=== PATIENT | female | born 1955 | race Caucasian/White ===

== ENCOUNTER 2021-01-29 13:47 | Outpatient (CLI) | payer BC, SELFPAY ==
--- NOTE | ~2021-01-29 | DEXA_ITS ---
Bone Density Report Name: Cesilia Hayes Age: 65 Sex: Female Ethnicity: White Date of : 1955 Indication: postmenopausal; parental hip fracture; height loss; Referring Provider: Maribell Miller Study: Bone densitometry was performed. Exam Date: January 29, 2021 Accession number: [id number] Bone Density: Region BMD T-score Z-score Classification AP Spine (L1-L4) 0.806 -2.2 -0.6 Osteopenia Femoral Neck (Left) 0.732 -1.1 0.4 Osteopenia Total Hip (Left) 0.857 -0.7 0.4 Normal Total Hip Bilateral Avg 0.868 -0.6 0.5 Normal Femoral Neck (Right) 0.737 -1.0 0.4 Normal Total Hip (Right) 0.878 -0.5 0.6 Normal World Health Organization criteria for BMD impression classify patients as: Normal (T-score at or above -1.0), Osteopenia (T-score between -1.0 and -2.5), or Osteoporosis (T-score at or below -2.5). 10-year Fracture Risk(1): Major Osteoporotic Fracture 15% Hip Fracture 1.0% Reported Risk Factors: [place] (), Neck BMD=0.732, BMI=24.0, parental fracture, smoking (1) FRAX(R) Version 3.08. Fracture probability calculated for an untreated patient. Fracture probability may be lower if the patient has received treatment. Previous Exams: Region Exam Age BMD T-score BMD Change BMD Change Date g/cm2 vs Baseline vs Previous AP Spine(L1-L4) 01/29/2021 65 0.806 -2.2 -0.140(-14.8%) -0.140(-14.8%) 11/14/2008 52 0.946 -0.9 Total Hip(Left) 01/29/2021 65 0.857 -0.7 0.003(0.3%)# 0.003(0.3%)# 11/14/2008 52 0.854 -0.7 Total Hip(Right) 01/29/2021 65 0.878 -0.5 -0.007(-0.8%)# -0.007(-0.8%)# 11/14/2008 52 0.885 -0.5 *Denotes significance at 95% confidence level, LSC for AP Spine = 0.022 g/cm2, LSC for Total Hip = 0.027 g/cm2 Clinical Information Provided by Patient: Parent has had a hip fracture Smokes Has used the following medications: Vitamin D, Calcium Patient maximum height was 68 Drinks caffeinated beverages Onset of menses at age 16 Number of children 2 Impression: The patient has low bone mass, based on the Total Spine T-score. The patient has an estimated ten-year risk of hip fracture of 1% and an estimated ten-year risk of major fracture of 15%, based on the WHO FRAX algorithm. The patient has risk factors, including: parental hip fracture, smoking. No significant bone loss was observed. Discussion: BONE DENSITY IS LOW AT ONE OR MORE SKELETAL SITES. This patient's lowest T-score is low at one or more skeletal
--- NOTE | ~2021-01-29 | MM_ITS ---
EXAMINATION: MM screening [facility] BI w mckayla HISTORY: Screening mammogram TECHNIQUE: Craniocaudal and mediolateral oblique 3-D tomosynthesis images were obtained and synthetic 2-D images were generated. CAD analysis was submitted and interpreted. COMPARISON: 12/11/2018, 04/24/2017, 06/03/2015 BREAST PARENCHYMAL COMPOSITION: There are scattered areas of fibroglandular density. FINDINGS: There is no evidence of suspicious mass, calcification, or architectural distortion to sugg est malignancy in either breast. There has been no suspicious interval change. IMPRESSION: 1. No mammographic evidence of malignancy. 2. Recommend routine screening mammography in one year. BI-RADS Category 1: Negative Reviewed, dictated and finalized at location A.
== END 2021-01-29 13:48 | disposition home or self-care (01) ==
LOC: ANHIMG 13:50
PROVIDERS: PCP Internal Medicine; Visit Provider Nurse Practitioner
DX: Z12.31 Encounter for screening mammogram for malignant neoplasm of breast (principal); Z13.820 Encounter for screening for osteoporosis; Z78.0 Asymptomatic menopausal state; M85.88 Other specified disorders of bone density and structure, other site; M85.852 Other specified disorders of bone density and structure, left thigh
CPT/HCPCS: 77063; 77067; 77080

== ENCOUNTER 2022-02-24 15:39 | Outpatient (CLI) | payer BC, SELFPAY ==
--- NOTE | ~2022-02-24 | MM_ITS ---
EXAMINATION: MM screening [facility] BI w mckayla HISTORY: Screening mammogram TECHNIQUE: Craniocaudal and mediolateral oblique 3-D tomosynthesis images were obtained and synthetic 2-D images were generated. CAD analysis was submitted and interpreted. COMPARISON: 01/29/2021, 12/11/2018, 04/24/2017 BREAST PARENCHYMAL COMPOSITION: There are scattered areas of fibroglandular density. FINDINGS: There is no suspicious mass, calcification, or architectural distortion to suggest malignan cy in either breast. There has been no suspicious interval change. IMPRESSION: 1. No mammographic evidence of malignancy. 2. Recommend routine screening mammography in one year. BI-RADS Category 1: Negative Reviewed, dictated and finalized at location A.
== END 2022-02-24 15:40 | disposition home or self-care (01) ==
PROVIDERS: PCP Internal Medicine; Visit Provider Nurse Practitioner
DX: Z12.31 Encounter for screening mammogram for malignant neoplasm of breast (principal)
CPT/HCPCS: 77063; 77067

== ENCOUNTER 2022-08-02 15:35 | Outpatient (CLI) | payer BC, SELFPAY ==
--- NOTE | ~2022-08-02 | CT_ITS ---
EXAMINATION: CT lung screening DATE: 08/02/2022 15:51 INDICATION: Tobacco use. Lung cancer screening TECHNIQUE: Computed tomography (CT) of the chest was performed without intravenous contrast. Addition al 3D reconstructions utilizing coronal maximum intensity projection (MIP) were performed. Automated exposure control and iterative reconstruction technique were employed. The dose-length product was 68 .09 mGy-cm. COMPARISON: None FINDINGS: Mild right apical pleural-parenchymal scarring. Atelectasis in the right middle lobe. There are coupl e flat lenticular intrafissural lymph nodes along the right minor fissure, each measuring 7 x 2 mm on sagittal imaging. There are a few scattered <4 mm nodules in both lungs, at least a few of which flaquito ear to represent tiny mucous plugs and some peripheral bronchi. No pneumonia, pulmonary edema or pleu ral effusion. Heart size is normal. Atherosclerotic coronary artery calcific location. No pericardial effusion. Thoracic aorta is normal in caliber. No pathologically enlarged thoracic lymphadenopathy. Visualized upper abdomen is unremarkable. Moderate to severe thoracic spondylosis with chronic appear ing mild anterior wedging at T11 and T12. IMPRESSION: 1. Lung-RADS category 2: Benign appearance or behavior. Continue annual screening with noncontrast lo w-dose chest CT in 12 months. Reviewed, dictated and finalized at location A. S REPRESENTATIVE UNIFORMS IMPRESSION: 1. Lung-RADS category 2: Benign appearance or behavior. Continue annual screeni ng with noncontrast low-dose chest CT in 12 months.
== END 2022-08-02 15:36 | disposition home or self-care (01) ==
PROVIDERS: PCP Internal Medicine; Visit Provider Nurse Practitioner
DX: Z12.2 Encounter for screening for malignant neoplasm of respiratory organs (principal); F17.210 Nicotine dependence, cigarettes, uncomplicated
CPT/HCPCS: 71271

== ENCOUNTER 2023-03-04 10:18 | Outpatient (CLI) | payer MEDICARE, OTHER, SELFPAY ==
--- NOTE | ~2023-03-04 | MM_ITS ---
EXAMINATION: MM screening [facility] w mckayla HISTORY: Screening mammogram TECHNIQUE: Craniocaudal and mediolateral oblique 3-D tomosynthesis images were obtained and synthetic 2-D images were generated. CAD analysis was submitted and interpreted. COMPARISON: 02/24/2022, 01/29/2021, 12/11/2018 bilateral screening mammogram examinations BREAST PARENCHYMAL COMPOSITION: There are scattered areas of fibroglandular density. FINDINGS: There is no evidence of suspicious mass, calcification, or architectural distortion to sugg est malignancy in either breast. There has been no suspicious interval change. IMPRESSION: 1. No mammographic evidence of malignancy. 2. Recommend routine screening mammography in one year. BI-RADS Category 1: Negative Reviewed, dictated and finalized at location A.
== END 2023-03-04 10:19 | disposition home or self-care (01) ==
PROVIDERS: PCP Internal Medicine; Visit Provider Nurse Practitioner
DX: Z12.31 Encounter for screening mammogram for malignant neoplasm of breast (principal)
CPT/HCPCS: 77063; 77067

== ENCOUNTER 2023-08-31 13:01 | Outpatient (CLI) | payer MEDICARE, OTHER, SELFPAY ==
--- NOTE | ~2023-08-31 | CT_ITS ---
EXAMINATION: CT lung screening DATE: 08/31/2023 14:08 INDICATION: Personal history of nicotine dependence, current smoker with 40 pack year history TECHNIQUE: Computed tomography (CT) of the chest was performed without intravenous contrast. The dose -length product (DLP) was 81.81 mGy-cm. Automated exposure control and iterative reconstruction techn [email or web address] were employed. COMPARISON: 08/02/2022 FINDINGS: There is mild emphysema. There is a 2 mm nodule in the right upper lobe. The lungs are free of acute airspace opacities. There is atelectasis versus scarring in the right middle lobe. No pleur al effusion or pneumothorax. No pathologically enlarged thoracic lymph nodes are identified. The hear t size is normal. Calcified coronary artery atherosclerosis is noted. There is mild thoracic spondylo sis. IMPRESSION: 1. Lung-RADS category 2: Benign appearance or behavior. Continue annual screening with noncontrast lo w-dose chest CT in 12 months. Reviewed, dictated and finalized at location F. LE BACKER IMPRESSION: 1. Lung-RADS category 2: Benign appearance or behavior. Continue annual screeni ng with noncontrast low-dose chest CT in 12 months.
--- NOTE | ~2023-08-31 | DEXA_ITS ---
Bone Density Report Name: BREANNA HUERTAS Age: 67 Sex: Female Ethnicity: White Date of : 1955 Indication: osteopenia; height loss; Referring Provider: MARY CARMEN SANTOS Study: Bone densitometry was performed. Exam Date: August 31, 2023 Accession number: [id number] Bone Density: Region BMD T-score Z-score Classification AP Spine(L1-L4) 0.789 -2.3 -0.5 Osteopenia Femoral Neck (Left) 0.684 -1.5 0.1 Osteopenia Total Hip (Left) 0.814 -1.0 0.2 Normal Femoral Neck (Right) 0.673 -1.6 0.0 Osteopenia Total Hip (Right) 0.896 -0.4 0.9 Normal Total Hip Mean 0.855 -0.7 0.6 Normal World Health Organization criteria for BMD impression classify patients as: Normal (T-score at or above -1.0), Osteopenia (T-score between -1.0 and -2.5), or Osteoporosis (T-score at or below -2.5). 10-year Fracture Risk(1): Major Osteoporotic Fracture 9.3% Hip Fracture 1.7% Reported Risk Factors: [place] (), Neck BMD=0.673, BMI=25.8, smoking (1) FRAX(R) Version 3.08. Fracture probability calculated for an untreated patient. Fracture probability may be lower if the patient has received treatment. Previous Exams: Region Exam Age BMD T-score BMD Change BMD Change Date g/cm2 vs Baseline vs Previous AP Spine (L1-L4) 08/31/2023 67 0.789 -2.3 -0.017 (-2.1%) -0.017 (-2.1%) 01/29/2021 65 0.806 -2.2 Total Hip(Left) 08/31/2023 67 0.814 -1.0 -0.043 (-5.0%) -0.043 (-5.0%) 01/29/2021 65 0.857 -0.7 Total Hip(Right) 08/31/2023 67 0.896 -0.4 0.018 (2.1%)# 0.018 (2.1%)# 01/29/2021 65 0.878 -0.5 *Denotes significance at 95% confidence level, LSC for AP Spine = 0.022 g/cm2, LSC for Total Hip = 0.027 g/cm2 # Denotes dissimilar scan types or analysis methods Clinical Information Provided by Patient: Smokes Has used the following medications: Vitamin D, Calcium Patient maximum height was 66.0 No regular weight bearing exercise Drinks caffeinated beverages Onset of menses at age 16 Number of children 2 Impression: The patient has low bone mass, based on the Total Spine T-score. The patient has an estimated ten-year risk of hip fracture of 1.7% and an estimated ten-year risk of major fracture of 9.3%, based on the WHO FRAX algorithm. The patient has risk factors, including: smoking. No significant bone loss was observed. Discussion: BONE DENSITY IS LOW AT ONE OR MORE SKELETAL SITES. This patient's lowest T-score is low at one or more skeletal sites. It meets the World Health Organization's (WHO) criteria for ?low calvin
== END 2023-08-31 13:02 | disposition home or self-care (01) ==
PROVIDERS: PCP Nurse Practitioner; Visit Provider Nurse Practitioner
DX: Z12.2 Encounter for screening for malignant neoplasm of respiratory organs (principal); Z78.0 Asymptomatic menopausal state; Z87.891 Personal history of nicotine dependence; M85.88 Other specified disorders of bone density and structure, other site; M85.852 Other specified disorders of bone density and structure, left thigh; M85.851 Other specified disorders of bone density and structure, right thigh
CPT/HCPCS: 71271; 77080

== ENCOUNTER 2024-06-30 08:34 | Emergency (ER) | payer MEDICARE, OTHER, SELFPAY ==
--- NOTE | ~2024-06-30 | XR_ITS ---
Clinical Indication: Cough PA and lateral views of the chest: Comparison: None Findings: There is probable linear scarring or atelectasis the right lung base. The lungs are otherwi se clear, without evidence of focal consolidation or pleural effusion. Cardiomediastinal silhouette is within normal limits. Bones and soft tissues are unremarkable. Impression: Linear scarring or atelectasis right lung base, otherwise clear lungs. Reviewed, dictated and finalized at location M. ATIONS REPRESENTATIVE Impression: Linear scarring or atelectasis right lung base, otherwise clear lungs.
--- NOTE | 2024-06-30 08:44 | ED_ITS ---
HPI - URI/Sore Throat General Chief Complaint: Upper Respiratory Infection Stated Complaint: cough Time Seen by Provider: 06/30/24 08:45 Source: patient, RN notes reviewed and old records reviewed Mode of arrival: ambulatory Limitations: no limitations History of Present Illness HPI Narrative: Patient presents with complaints of productive cough. She reports symptoms began late last week, states that she has some postnasal drainage. On , she noted a feeling of ?phlegm in my throat?. Reports that she coughed and expectorated some bloody sputum. She does report pain with cough, wheezing. Patient reports she smokes pack a day for 40 years. States that she has not had any blood in her sputum since. Denies any history of asthma or COPD. She denies any shortness of breath. She is in no distress at this time, including respiratory distress. She has not been taking any medications for her symptoms Related Data Home Medications Medication Instructions Recorded Confirmed ascorbic acid (vitamin C) 1,000 mg 1 g PO DAILY 12/24/20 02/29/24 tablet multivitamin 1 tablet PO DAILY 12/24/20 02/29/24 omega-3 fatty acids 1,000 mg 1,000 mg PO DAILY 01/07/21 02/29/24 capsule (Fish Oil Concentrate) calcium carbonate (Calcium 600) 600 mg PO DAILY 02/02/21 02/29/24 risankizumab-rzaa 150 mg/mL 150 mg subcut ONCE 08/16/23 02/29/24 subcutaneous pen injector (Skyrizi) Allergies Allergy/AdvReac Type Severity Reaction Status Date / Time No Known Allergies Allergy Verified 06/30/24 08:56 Review of Systems Review of Systems: All systems reviewed & are unremarkable except as noted in HPI and below Constitutional: Constitutional: Reports no additional constitutional complaints ENT: Reports system reviewed and no additional complaints, except as documented, Reports nasal discharge and Reports post nasal drip Cardiovascular: Cardiovascular: Reports as per HPI and Reports no additional cardiovascular complaints Respiratory: Respiratory: Reports as per HPI, Reports no additional respiratory complaints, Reports chest congestion, Reports cough, Reports hemoptysis, Reports excessive phlegm production, Reports pain with cough, Denies stridor and Reports wheezing Gastrointestinal: Gastrointestinal: Reports no additional gastrointestinal complaints PMFSH Past Medical History Medical History Crohn's disease, unspecified, without complications Dermatitis, unspecified Dermoid cyst Encounter for screening colonoscopy Major depressive disorder, single episode, unspecified Postmenopausal Prediabetes Screening for osteoporosis Screening mammogram, encounter for Vitamin D deficiency, unspecified Surgical History Surgical History H/O colonoscopy History of salpingo-oophorectomy Family History Family History Sibling Family history of gastrointestinal disorder Family history of diabetes mellitus in first degree relative Diabetes mellitus Mother Cerebrovascular accident Patient's mother is , Onset Age: 55 Social History Social History Smoking packs per day: 1 Smoking cigarettes per day: 20.0 Smoking status: Current every day smoker Tobacco type: cigarettes Second hand tobacco smoke exposure: No Alcohol intake: never Substance use: never Substance use type: does not use Lack of Transportation: No Lack of Food: Never True Current Housing: I Have Housing Concerned About Future Housing: No Difficulty Paying Gas/Electric Bills: No Difficulty Paying for Meds: No Currently Unemployed: No Difficulty w/ Childcare or Family Care: Decline to Answer Comments At the time of my signature, I reviewed and agree with the nursing past medical, surgical, social, and family history. There is no relevant family history pertinent to the patient complaint. Exam Const: General: cooperative, no acute distress, alert and awake Orientation/consciousness: oriented to person, oriented to place and oriented to time HENMT: Head: normal to inspection Ears: TM's normal bilaterally Mouth: Yes moist mucous membranes Throat: posterior oropharynx normal Resp: Effort & Inspection: normal respiratory effort and able to speak in complete sentences Auscultation: clear to auscultation bilaterally, no crackles, no rales, rhonchi throughout and wheezes throughout Cardio: Palpation: normal PMI Rate: regular rate Rhythm: regular rhythm Heart sounds: S1 normal heart sound present and S2 normal heart sound present Neuro: General: oriented to person, oriented to place and oriented to time Cranial nerves: Yes CN's II-XII intact bilaterally Psych: Appearance: grossly normal Thought process: Normal thought process present Insight: Good insight present (Psych) Judgement: Good judgement present (Psych) Course Course Level of Care: Express Care Visit Reevaluation(s) Reevaluation #1: Lung sound much cleaer, , moving air much better after 1st dose of steroids and neb treatment. Pulse oximetry 94, 86 heart rate Date: 06/30/24 Time: 09:34 Vital Signs Vital signs: Reviewed MDM - URI/Sore Throat MDM Narrative Medical decision making narrative: Patient reports 1 incident of bloody sputum, unsure if this was actually sputum or postnasal drainage. Has not had any further evidence bloody sputum since . Chest x-ray with no focal pneumonia is identified. Patient improved after prednisone and neb treatment. Treat with steroids, albuterol, Z-Narendra for added anti inflammatory properties. Follow up without fail Discharge instructions reviewed with patient, as well as provided in writing per nursing staff. The instructions also include specific and strict return/GO TO THE ER as well as f/u information. All questions have been answered, and the patient deny any further questions with discharge and discharge plan. Some parts of this dictation were generated by voice recognition software and may contain typographical and/or grammatical inaccuracies. Differential Diagnosis Differential diagnosis: Likely bronchitis Medical Records Attestation: I reviewed the patient's medical records. Imaging Data Attestation: I personally reviewed and interpreted this imaging study as follows: My impression: No focal consolidations noted Radiologist's impression: [facility] [address] [place] [address] XRay Report Signed Patient: Cesilia Hayes : 1955 MR#: [id number] Age: 68 Acct:[id number] Loc: [facility] ADM Date: 06/30/24Attending Dr: Ordering Physician: Heather Dewey FNP Date of Service: 06/30/24 Procedure(s): XR chest 2V Accession Number(s): [id number] cc: Heather Dewey FNP; Natalie No APRN~ Clinical Indication: Cough PA and lateral views of the chest: Comparison: None Findings: There is probable linear scarring or atelectasis the right lung base. The lungs are otherwise clear, without evidence of focal consolidation or pleural effusion. Cardiomediastinal silhouette is within normal limits. Bones and soft tissues are unremarkable. Impression: Linear scarring or atelectasis right lung base, otherwise clear lungs. Reviewed, dictated and finalized at location M. [employer]ICAL PRODUCTS ENGINEER Dictated By: Ab Schneider MD 06/30/24908 Signed By: <Electronically signed by Ab Schneider MD in OV> 06/30/24909 Discharge Plan Discharge Clinical Impression: Bronchitis, Elevated blood pressure reading Patient Disposition: Home, Self-Care Condition: Stable Instructions: Antibiotic Form, Acute Bronchitis (ED) Additional Instructions: Take medications as prescribed. Follow-up with primary care provider without fail. Go to the emergency department with any new or worsening symptoms, or if current symptoms do not improve. Blood pressure elevated today Prescriptions: New azithromycin 250 mg tablet See Rx Instructions .ROUTE .COMPLEX Qty: 6 0RF Rx Instructions: For 250 mg dose pack: take 500 mg today (day 1), then 250 mg for 4 days (days 2-5) prednisone 50 mg tablet 50 mg PO DAILY Qty: 5 0RF albuterol sulfate [Ventolin HFA] 90 mcg/actuation HFA aerosol inhaler 2 puff inhalation QID PRN (Reason: shortness of breath or wheezing) Qty: 8.5 0RF No Action Skyrizi 150 mg/mL pen injector 150 mg subcut ONCE multivitamin Tablet 1 tablet PO DAILY ascorbic acid (vitamin C) 1,000 mg tablet 1 g PO DAILY cholecalciferol (vitamin D3) 25 mcg (1,000 unit) capsule 50 mcg PO DAILY Qty: 30 0RF omega-3 fatty acids [Fish Oil Concentrate] 1,000 mg capsule 1,000 mg PO DAILY calcium carbonate [Calcium 600] 600 mg calcium (1,500 mg) tablet 600 mg PO DAILY Patient Comments: Patient reports taking 1800mg daily paroxetine HCl 20 mg tablet See Rx Instructions .ROUTE .COMPLEX Qty: 90 1RF Dose Instruction: TAKE 1 TABLET BY MOUTH DAILY Rx Instructions: TAKE 1 TABLET BY MOUTH DAILY rosuvastatin 40 mg tablet 40 mg PO DAILY Qty: 90 1RF Follow-up/Referrals: Natalie No APRN [Primary Care Provider] - Time of Disposition: 09:35
[2024-06-30 08:48] VITALS: BP 157/82; PULSE 86; RESP 18; TEMP 36.1; O2SAT 91
[2024-06-30] MEDS: predniSONE 20 MG TABLET 60 MG PO (09:07)
[2024-06-30] MEDS: IPRATROPIUM 0.5 MG/ALBUTEROL SULFATE 2.5 MG AMPUL.NEB 3 ML INHALATION (09:08)
[2024-06-30 09:31] VITALS: PULSE 86; RESP 18; O2SAT 94
== END 2024-06-30 09:40 | disposition home or self-care (01) ==
PROVIDERS: Emergency Provider Nurse Practitioner Family; PCP Nurse Practitioner Family
DX: J40 Bronchitis, not specified as acute or chronic (principal); R03.0 Elevated blood-pressure reading, without diagnosis of hypertension; K50.90 Crohn's disease, unspecified, without complications; R73.03 Prediabetes; F17.210 Nicotine dependence, cigarettes, uncomplicated
CPT/HCPCS: 71046; 99213; G0463; J7512

== ENCOUNTER 2024-07-09 08:27 | Outpatient (CLI) | payer MEDICARE, OTHER, SELFPAY ==
--- NOTE | ~2024-07-09 | MM_ITS ---
EXAMINATION: MM screening [facility] w mckayla HISTORY: Screening TECHNIQUE: Craniocaudal and mediolateral oblique 3-D tomosynthesis images were obtained and synthetic 2-D images were generated. CAD analysis was submitted and interpreted. COMPARISON: Comparison to multiple prior studies sequentially, with oldest reviewed study dated 05/15. BREAST PARENCHYMAL COMPOSITION: Not dense: There are scattered areas of fibroglandular density. FINDINGS: There is no evidence of suspicious mass, calcification, or architectural distortion to sugg est malignancy in either breast. There has been no suspicious interval change. IMPRESSION: 1. No mammographic evidence of malignancy. 2. Recommend routine screening mammography in one year. BI-RADS Category 1: Negative Reviewed, dictated and finalized at location B. [employer]ETING [employer]ELOPMENT
== END 2024-07-09 08:28 | disposition home or self-care (01) ==
PROVIDERS: PCP Nurse Practitioner Family; Visit Provider Nurse Practitioner Family
DX: Z12.31 Encounter for screening mammogram for malignant neoplasm of breast (principal)
CPT/HCPCS: 77063; 77067

== ENCOUNTER 2024-10-15 06:58 | Outpatient (CLI) | payer MEDICARE, OTHER, SELFPAY | END 2024-10-15 06:59 | disposition home or self-care (01) | LOC: ANHIMG 06:58 | PROVIDERS: PCP Nurse Practitioner Family; Visit Provider Nurse Practitioner Family | DX: Z12.2 Encounter for screening for malignant neoplasm of respiratory organs (principal); F17.210 Nicotine dependence, cigarettes, uncomplicated | CPT/HCPCS: 71271 ==

== ENCOUNTER 2025-06-13 20:13 | Emergency (ER) | payer MEDICARE, OTHER, SELFPAY ==
--- NOTE | ~2025-06-13 | CT_ITS ---
CT CHEST WITH CONTRAST CLINICAL HISTORY: lung nodule, chest pain . COMPARISON: Chest x-ray today CT chest 10/15/2024 TECHNIQUE: Helical CT performed from thoracic inlet to upper abdomen Coronal, sagittal reformats [address] images acquired with automatic exposure control for dose reduction DLP: 128 mGy-cm FINDINGS: Lungs/Pleura: 2 mm nodule right upper lobe, best seen sagittal image 39 anteriorly. Hyperinflation. Thoracic Aorta: No dissection. No aneurysm. Mild atherosclerotic disease Pulmonary arteries: Normal caliber. Heart: Coronary artery calcification. Tracheobronchial tree: Patent. Nodes: No enlarged nodes. Bones: No acute bony abnormality. Soft tissues: Unremarkable. Visualized upper abdomen: Hepatomegaly, with steatosis. Small hiatal hernia. IMPRESSION: 1. No acute cardiopulmonary findings. 2. Unchanged 2 mm nodule right upper lobe. Reviewed, dictated and finalized at location R.
--- NOTE | ~2025-06-13 | XR_ITS ---
XR chest 1V portable INDICATION:chest pain . REFERENCE: None FINDINGS: A single AP of the chest demonstrates normal heart size. The lungs are clear. There is no evidence of pneumothorax or pleural effusion. IMPRESSION: No acute pulmonary findings. Reviewed, dictated and finalized at location S.
[2025-06-13 20:15] VITALS: BP 170/74; PULSE 94; RESP 17; TEMP 36.4; O2SAT 97
--- OUTSIDE RECORDS SUMMARY | 2025-06-13 20:15 | XMS_ITS | Data Portability ---
Author Organization [facility] Address [address] [place] [address] Care Team Providers Care Administrative Director Name Role Phone SERA WICK Primary Care Provider Assessment Encounter Date Assessment Date Assessment LastModified by Organization Details LastModified Time 08/16/2022 08/16/2022 Annual gynecological exam performed. Patient will come back in a year unless there are new symptoms. Not available 08/16/2022 16:37:38 Plan of Treatment Reminders Order Date Submit Date Provider Last Modified By Organization Details Last Modified Time Details Appointments None record ed. Lab None record ed. Referral None record ed. Procedures None record ed. Surgeries None record ed. Imaging None record ed. Medication Orders None record ed. Patient TargetsNo targets recorded. Patient InstructionsNo instructions recorded. Reason for Referral None Reported. Results Created Date Observation Date Name Description Value Unit Range Abnormal Flag Note LastModifiedBy Organization Detail LastModifiedTime 08/16/19 23 08/16/2022 IMAGE GUIDE D PAP AND HPV REGAR DLESS image guided Pap, HPV regardless of Pap result SEE RESULT S BELOW CASE REPOR T: Cytol ogy Gynec ologi sue Repor t Case: [id number] Autho rey g Provi donavon: Gee Kemp Colle cted: 08/16 1748 QUALITY IMPROVEMENT ENGINEER Order ing Locat ion: [place] [facility] Recei brionna: 08/17 0415 First Scree n: Camilla Boles h, CT Rescr een: Strut z, Willi am, CT Speci men: Scree liborio Pap - Image d, Cervi x STATE MENT OF ADEQU ACY: Satis facto ry for evalu ation Trans forma tion zone compo nent prese nt FINAL DIAGN OSIS: Negat andrew for Intra epith elial Lesio n or Cecilia yuan (NIL) . Elect susie batres malathi d by Saúl Lorenzana am, CT on 023 at 6:08 AM ----- ----- ----- ----- ----- ----- ----- ----- ----- ----- ----- ----- ----- ----- ----- ----- ----- ---- HPV RESUL TS: HPV mRNA E6/E7 : No HPV mRNA Detec netta NOTE: This high risk HPV mRNA assay detec ts fourt een high- risk HPV types (16, 18, 31, 33, 35, 39, 45, 51, 52, 56, 58, 59, 66, 68) witho ut diffe renti ation . COMME NT: Note: This speci men was revie wed by a Cytot echno logis t and/o r Patho logis t (as indic ated in this repor t) after evalu ation using the Thinp rep Imagi ng Syste m. CLINI SUE INFOR MATIO N: Menst rual Statu s: LMP (if appli cable ): Clini sue Histo ry/Pr eviou s Pap: Type of Neopl ferny (if appli cable ): Signi fican t Clini sue Findi ngs: Other Histo ry: Hormo abilio (if appli cable ): PAP EDUCA PIERRE L NOTE: The Pap Test is a scree liborio test with an inher ent false negat andrew rate. Liqui d-bas ed sampl ing may decre ase, but will not elimi yeni, false negat andrew resul ts. A negat andrew resul t does not precl ude the prese nce and/o r devel opmen t of disea se, since the prese nce of abnor mal cells in the sampl e depen ds on the locat ion of the lesio n and sampl ing techn ique. Claudette nued regul ar scree liborio is the best metho d of cance r preve ntion . If repor netta cytol ogic findi ng do not corre late with physi sue and/o r histo rical findi ngs, furth er inves tigat ion is recom sanjeev d, as clini austen garcia nted. Not Available [facility] (Lab) [address], [place], [address], 08/18/2022 07:12:18 Result Notes None recorded. Problems Name Problem SNOMED Code Status Onset Date Resolution Date Notes Provider Name and Address Organization Details Recorded Time Screening for malignant neoplasm of colon Active 2010 Special screening for malignant neoplasms , colon;Pra ctice ID: [id number] Not Available [facility] 0 22:01:10 Specializ ed medical examinati on Active 2012 Gynecolog ical Examinati on;Record ed Elsewhere : No Locati on: [facility] So urce: EHR Chron ic: N Practic e ID: 0001 Bill able Time: 08:30:00 AM Not Available [facility] 0 22:01:09 Screening for malignant neoplasm of cervix Active 2012 Screening for malignant neoplasms of the cervix;Re corded Elsewhere : No Locati on: [facility] So urce: EHR Chron ic: Y Practic e ID: 0001 Bill able Time: 08:30:00 AM Not Available [facility] 0 22:01:10 Microscop ic hematuria 165223121 Active 2012 MICROSCOP IC HEMATURIA ;Recorded Elsewhere : No Locati on: [facility] So urce: EHR Chron ic: N Practic e ID: 0001 Bill able Time: 08:30:00 AM Not Available [facility] 0 22:01:10 Screening for malignant neoplasm of rectum Active 2014 Screening for malignant neoplasms of the rectum;Re corded Elsewhere : No Locati on: [facility] So urce: EHR Chron ic: N Practic e ID: 0001 Bill able Time: 08:30:00 AM Not Available [facility] 0 22:01:09 Blood in urine 25732955 Active 2014 HEMATURIA NOS;Recor ded Elsewhere : No Locati on: [facility] So urce: EHR Chron ic: N Practic e ID: 0001 Bill able Time: 08:30:00 AM Not Available [facility] 0 22:01:09 Adult health examinati on Active 2014 ROUTINE MEDICAL EXAM;Renato rded Elsewhere : No Locati on: [facility] So urce: EHR Chron ic: N Practic e ID: 0001 Bill able Time: 08:30:00 AM Not Available [facility] 0 22:01:09 Leukocyto sis 306661606 Active 2014 LEUKOCYTO SIS NOS;Recor ded Elsewhere : No Locati on: [facility] So urce: EHR Chron ic: N Practic e ID: 0001 Bill able Time: 08:30:00 AM Not Available [facility] 0 22:01:10 Overweigh t 247812728 Active 2014 Overweigh t;Recorde d Elsewhere : No Locati on: [facility] So urce: EHR Chron ic: N Practic e ID: 0001 Bill able Time: 08:30:00 AM Not Available [facility] 0 22:01:[address] Concept Active 2016 Encntr for general adult medical exam w/o abnormal findings; Recorded Elsewhere : No Locati on: [facility] So urce: EHR Chron ic: N Practic e ID: 0001 Bill able Time: 11:30:00 AM Not Available [facility] 0 22:01:09 Evaluatio n finding Active 2016 Hematuria , unspecifi ed;Record ed Elsewhere : No Locati on: [facility] So urce: EHR Chron ic: N Practic e ID: 0001 Bill able Time: 11:30:00 AM Not Available [facility] 0 22:01:09 Body mass index 25-29 - overweigh t [id number] Active 2016 Body mass index (BMI) 25.0-25.9 , adult;Rec orded Elsewhere : No Locati on: [facility] So urce: EHR Chron ic: N Practic e ID: 0001 Bill able Time: 11:30:00 AM Not Available [facility] 0 22:01:[address] Concept Active 2016 Encounter for general adult medical exam w abnormal findings; Practice ID: 0001 Not Available [facility] 0 22:01:[address] Concept Active 2018 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 Procedures Surgical History Date Name Laterality Status Provider Name and Address Organization Details Recorded Time 01/18/20 22 Colonoscopy completed GAURI Dodson- [address], [place], [address], [facility] 08/16/2022 17:02:10 12/13/19 22 Date of Last Mammogram completed [facility] 08/16/2022 16:44:11 12/25/19 19 Date of Last Pap Smear completed [facility] 08/16/2022 16:00:43 Tubal Ligation completed [facility] 08/16/2022 16:46:14 removal of ovarian cyst completed GAURI Dodson-[facility] [address], [place], [address], [facility] 08/16/2022 16:59:37 Imaging Results None recorded. Procedure Notes None recorded. Medical Equipment None Reported. Allergies No known drug allergies Medications Name Sig Start Date Stop Date Status Note LastModified by Organization Details LastModified Time paroxetin e 10 mg tablet take 1 tablet by oral route every day active Prescrib ed Elsewher e: Yes [facility] odify By: odilia Encounte r DateTime : 03/04/20 13 08:30:00 AM Not Available Not Available Not Available glipizide 10 mg tablet take 1 tablet by oral route every day before a meal 08/16 completed Prescrib ed Elsewher e: Yes [facility] odify By: dmrose E ncounter DateTime : 12/25/19 19 10:45:00 AM Not Available Not Available Not Available prednison e 20 mg tablet 08/16 completed Not Available Not Available Not Available pravastat in 80 mg tablet active Not Available Not Available Not Available pravastat in 10 mg tablet take 1 tablet by oral route every day active Prescrib ed Elsewher e: Yes [facility] odify By: odilia Encounte r DateTime : 03/04/20 13 08:30:00 AM Not Available Not Available Not Available paroxetin e 20 mg tablet active Not Available Not Available Not Available balsalazi de 750 mg capsule 08/16 completed Not Available Not Available Not Available multivita min capsule take 1 capsule by oral route every day active Prescrib ed Elsewher e: Yes [facility] odify By: odilia Encounte r DateTime : 03/04/20 13 08:30:00 AM Not Available Not Available Not Available glipizide 5 mg tablet active Not Available Not Available Not Available Vitamin D3 10 mcg (400 unit) capsule active Prescrib ed Elsewher e: Yes Loca tion: [facility] odify By: odilia Encounte r DateTime : 03/04/20 13 08:30:00 AM Not Available Not Available Not Available Stelara active Not Available Not Avail able Not Available Vitals Date Recorded Systolic And Diastolic Provider Name and Address Organization Details Last Updated DateTime 08/16/2022 122/78 mm[Hg] Geovanna Lema, [facility]- [address], [place], [address], [place] [facility] 08/16/2022 17:01:29 Date Recorded Body height Body mass index (BMI) Body weight Provider Name and Address Organization Details Last Updated DateTime 08/16/2022 165.1 cm 23.9 kg/m2 44837.86 g Nu Jiménez [facility] 08/16/2022 16:43:41 Social History Question Answer Notes LastModified by Organizat ion Details LastModified Time Tobacco Smoking Status Current Every Day Smoker Nu Jiménez null, [facility] 08/16/2022 16:46:05 Are You Blind Or Do You Have Difficulty Seeing? No Information not available 08/16/2022 Are You Deaf Or Do You Have Serious Difficulty Hearing? No Information not available 08/16/2022 What Type Of Diet Are You Following? REGULAR Information not available 08/16/2022 At What Age Did You Start Smoking Tobacco? 27 Information not available 08/16/2022 How Much Tobacco Do You Smoke? 1 PPD Information not available 08/16/2022 Do You Have Difficulty Walking Or Climbing Stairs? No Information not available 08/16/2022 Sex: Unknown Functional Status Question Answer Note LastModified by Organizat [employer] Details LastModified Time What is your level of alcohol consumption? None Information not available 08/16/2022 Are you able to walk independently without assistance or assistive devices? YESWOREST Information not available 08/16/2022 Are you able to care for yourself independently? Yes Information not available 08/16/2022 Do you have difficulty dressing, bathing, grooming, or toileting? No Information not available 08/16/2022 What is your exercise level? Moderate Information not available 08/16/2022 Mental Status None recorded. Family History Relationship Description Onset Age of this Age Resolved Age Notes LastModified by Organization Details LastModified Time Father Heart disease Not available 2022 16:44:53 Father Hypercholest erolemia Not available 2022 16:45:08 Father Hypertensive disorder Not available 2022 16:45:17 Brother Diabetes mellitus Not available 2022 16:45:02 Brother Hypertensive disorder Not available 2022 16:45:17 Paternal Grandmother Malignant neoplasm of lung Not available 2022 16:45:26 Notes:Brother: Diabetes amilcar itus Daughter: Multiple sclerosis Father: Heart disease Medical History Condition Response Allergies (Food, seasonal, environmental ) N Other N Drug/Latex Allergies/Reactions N Blood Transfusion N Breast Cancer N Dermatologic Disorders N Lung Disease N Defects or Inherited Disease N Breast Problem N Gestational Diabetes N Hematologic disorders N Anesthesia Complications N History of STI N Deep Vein Thrombosis N Polycystic ovary syndrome N Anxiety Disorder N Autoimmune disease N Arthritis N Polyps N Infertility N Acid Reflux (GERD) N History of abnormal pap N Cancer N Varicosities N Stroke N Neurologic/Epilepsy N Endometriosis N High Cholesterol Y Fibromyalgia N Headaches N Kidney Disease N Heart Problems N Thyroid Problems N Kidney or Bladder Problems N GI Problems Y Eating Disorder N Anemia N Art (IVF or FET) N Psychiatric Illness N Ovarian Cancer N Diabetes Y Pulmonary (TB, Asthma) N Hepatitis/Liver Disease N No Past Medical History N Eczema N Urinary Tract Infection N Abuse/Domestic Violence N Asthma N Trauma/Violence N Depression/ depression Y Heart Disease N Pre-Eclampsia N Hypertension N Osteoporosis N Thrombophilias N Gynecological History Statement/Question Response Abnormal Pap N Date of Last Mammogram 12/12/2021 Date of LMP 08/14/2008 STIs/STDs N HPV Vaccine N Current Control Method Menopause If Post Menopausal, Age at Menopause 52 Sexually Active? No Menses Monthly N Age of first menstrual cycle 16 Date of Last Pap Smear 12/24/2018 Sexual Problems? N LMP Approximate Obstetrics History GPAL:G 2 P 2 0 0 2 Type Value Full Term 2 Living 2 Total 2 Past Encounters Encounter ID Performer Location Encounter Start Date Encounter Closed Date Diagnosis/Indication Diagnosis SNOMED-CT Code Diagnosis ICD10 Code Diagnosis IMO Codes Diagnosis Note [id number] Geovanna Lema [facility] [address] [address] 08/16/2022 16:36:08 08/16/2022 17:30:19 Gynecologic examination 56135136 Z01.419 Take Calcium with Vitamin D 12-1500mg daily. Do monthly self breast exams. It is advised to get annual flu shot in the fall and she could obtain at [facility] or [facility] clinic. If you haven't received the Tdap vaccine in the last 10 years you should obtain one as well. Have mammogram yearly, bone density every 2-3 years and colonoscop y every 5-10 years depending on findings and history. Engage in daily exercise of low impact aerobic exercise 45-60 minutes 4-5 times weekly. Avoid tobacco and illicit drugs as well as using moderation with alcohol intake less than 1-2 8 oz beverages daily. This lifestyle behavior pattern will lead to less health conditions and longer life span. If BMI greater than 25 weight watchers or dietary consult advised. Questions have been answered. Patient appears to understand instructio ns, but if you have any further questions call or respond to this email Pap/hpv sent STD Screen declined Genetic Screen discussed Colon Screen UTD PCP Dexa Screen UTD PCP Routine Labs UTD PCPMammo wnl PCPWidow 2020 Health Concerns Section Related Observation LastModified by Organization Detai ls LastModified Time None Recorded Concern Status LastModified by Organization Details LastModified Time None Recorded Advance Directives Directive None Recorded Payers Insurance Date Sequence Insurance Name Policy Number Policy Salazar Covered Member ID Salazar Member ID Guarantor Name 08/16/2022 1 [place] [id number] Cesilia A Votava [id number] Cesilia A Votava 08/16/2022 1 [place] [id number] Cesilia A Votava [id number] Cesilia A Votava Notes Date Note Type Note Provider Name and Address Organization Details Recorded Time 3 text/html Annual Leasing Coordinator Post-MenopausalReported by PatientGenitourinary symptomsFor menopausal symptoms, patient reportsno menopausal symptomsandnormal vaginal lubrication. For vaginal bleeding, patient reportshistory of menopause having occurredandno history of post menopausal bleeding. For urinary symptoms, patient reportsno hematuria,no incontinence,no nocturia, andno urinary frequency. For vulva, patient reportsno genital lesionandno vulvar atrophy. For vagina, patient reportsnormal vaginal dischargeandno vaginal atrophy.Breast symptomsFor breast, patient reportsno breast lump,no nipple discharge, andno breast pain.Psychological symptomsFor sexual complaints, patient reportsno sexual complaints. For psychological symptoms, patient reportsno depressionandno anxiety.Preventative measuresFor preventive measures, patient reportsencourage regular mammograms starting age 40,encourage self breast examination,encourage regular exercise,encourage no tobacco use,mammogram performed within the past year, andhistory of recent colonoscopy. Geovanna Lema, [facility]- [address], [place], [address], [facility] 08/16/2022 17:22:00 OBGyn Episode Ob Episode Information Episode Created Date Number of Fetuses Patient Bloodtype Patient rh Status Prepregnancy Weight lbs Domestic Partner Domestic Partner Phone Father Name Inspector Hairspring Status 08/16/19 1 CLOSED Fetus Data First Name Last Name Admitted to NICU Weight (g) Sex Living Outcome Pediatric Complications Fetus ID Race Codes Race Delivery Type Full Term [id number] Vaginal Delivery Umer Calculation Initial Umer Date Initial Exam Date Initial Exam Provider Initial Ultrasound Date Last Menstrual Period Date Ultra Sound Weeks Gestation 0 Eighteen To Twenty Week Umer Update Ultra Sound Date Fundal Height At Umbil Quickening Date Ultra Sound Latest Weeks Gestation Final Umer Confirmed By Final Umer Confirmed Date Final Umer Date Ultra Sound Latest Days Gestation 0 0 Menstrual History Last Menstrual Date Menses Monthly On Bcp Conception Prior Menses Frequency Hcg Plus Date Menarche Onset Age Delivery Information Delivery Date Delivery Type Labor Anesthesia Weeks Gestation Incision Type Labor Labor Length Hrs Delivered By Post Complications Tubal Sterilization Discharge Date Comments 5 Discharge Information Feeding Method Contraceptive Method Maternal HG B and HCT Levels Ob Episode Information Episode Created Date Number of Fetuses Patient Bloodtype Patient rh Status Prepregnancy Weight lbs Domestic Partner Domestic Partner Phone Father Name Inspector Hairspring Status 08/16/19 23 1 CLOSED Fetus Data First Name Last Name Admitted to NICU Weight (g) Sex Living Outcome Pediatric Complications Fetus ID Race Codes Race Delivery Type Full Term [id number] Vaginal Delivery Umer Calculation Initial Umer Date Initial Exam Date Initial Exam Provider Initial Ultrasound Date Last Menstrual Period Date Ultra Sound Weeks Gestation 0 Eighteen To Twenty Week Umer Update Ultra Sound Date Fundal Height At Umbil Quickening Date Ultra Sound Latest Weeks Gestation Final Umer Confirmed By Final Umer Confirmed Date Final Umer Date Ultra Sound Latest Days Gestation 0 0 Menstrual History Last Menstrual Date Menses Monthly On Bcp Conception Prior Menses Frequency Hcg Plus Date Menarche Onset Age Delivery Information Delivery Date Delivery Type Labor Anesthesia Weeks Gestation Incision Type Labor Labor Length Hrs Delivered By Post Complications Tubal Sterilization Discharge Date Comments 1 Discharge Information Feeding Method Contraceptive Method Maternal HG B and HCT Levels
[2025-06-13 21:00] VITALS: BP 152/64; PULSE 80; RESP 13; O2SAT 98
--- NOTE | 2025-06-13 21:04 | ECG_ITS ---
Test Date: 2025-06-13 23:00:09 Measurements Intervals [place] Rate: 74 P: 63 NV: 160 QRS: 77 QRSD: 97 T: 78 QT: 380 QTc: 424 Interpretive Statements SINUS RHYTHM INCOMPLETE RIGHT BUNDLE BRANCH BLOCK [90+ ms QRS DURATION, TERMINAL R IN V1/V2, 40+ ms S IN I/aVL/V4/V5/V6] ST DEVIATION AND MODERATE T-WAVE ABNORMALITY, CONSIDER ANTEROLATERAL ISCHEMIA [-0.1+ mV T WAVE IN V3-V6] No previous ECG available for comparison Electronically Signed On 06-14-2025 11:59:43 CDT by Janes Ocasio M.D.
--- NOTE | 2025-06-13 21:25 | ED.GENADULT ---
HPI - General Adult General Chief complaint: Unspecified Stated complaint: [facility] from [facility], vomiting, pain, cp, muscle spasms Time Seen by Provider: 06/13/25 21:02 History of Present Illness HPI narrative: 69-year-old female with history of Crohn's disease and emphysema/COPD from smoking. Patient presents to the emergency department with muscle aches, chest and epigastric discomfort as well as nausea and vomiting for 3 days. She started rifampin and budesonide this week for latent TB diagnosed by her infectious disease doctor with skin testing and a chest x-ray that showed a nodule. She had outpatient CT scan earlier this year that did not show anything and she has no other risk factors besides being on some immunosuppressive medications for her Crohn's disease. No coughing, chest pain, back pain. No diarrhea, fever chills. She is endorsing muscle spasms and pain in her neck as well as her legs. No falls or injuries. Was otherwise in her normal state of health. Only medication changes were initiation is a high-dose rifampin for 4 months and budesonide for anti-inflammatory control that she satrted this week prior to symptom onset. Related Data Home Medications ?Medication ?Instructions ?Recorded ?Confirmed ?Last Taken ?Type ascorbic acid (vitamin C) 1,000 mg 1 g PO DAILY 12/24/20 03/04/25 Unknown History tablet multivitamin 1 tablet PO DAILY 12/24/20 03/04/25 Unknown History omega-3 fatty acids 1,000 mg 1,000 mg PO DAILY 01/07/21 03/04/25 Unknown History capsule (Fish Oil Concentrate) calcium carbonate (Calcium 600) 600 mg PO DAILY 02/02/21 03/04/25 Unknown History risankizumab-rzaa 150 mg/mL 150 mg subcut ONCE 08/16/23 03/04/25 Unknown History subcutaneous pen injector (Skyrizi) Allergies Allergy/AdvReac Type Severity Reaction Status Date / Time No Known Allergies Allergy Verified 06/13/25 20:21 Review of Systems Review of Systems: As reviewed above in HPI [facility] Past Medical History Medical History Postmenopausal Encounter for screening colonoscopy Screening for osteoporosis Screening mammogram, encounter for Crohn's disease, unspecified, without complications Dermatitis, unspecified Vitamin D deficiency, unspecified Prediabetes Major depressive disorder, single episode, unspecified Dermoid cyst Surgical History Surgical History H/O colonoscopy History of salpingo-oophorectomy Family History Family History Sibling Family history of gastrointestinal disorder Family history of diabetes mellitus in first degree relative Diabetes mellitus Mother Cerebrovascular accident Patient's mother is , Onset Age: 55 Social History Social History Smoking packs per day: 1 Smoking cigarettes per day: 20.0 Smoking status: Current every day smoker Tobacco type: cigarettes Second hand tobacco smoke exposure: No Alcohol intake: never Substance use: never Substance use type: does not use Lack of Transportation: No Lack of Food: Never True Current Housing: I Have Housing Concerned About Future Housing: No Difficulty Paying Gas/Electric Bills: No Difficulty Paying for Meds: No Currently Unemployed: No Difficulty w/ Childcare or Family Care: Decline to Answer Exam Narrative: GENERAL: [Well-appearing, well-nourished, and in no acute distress.] HEAD: [Normocephalic, atraumatic.] EYES: [PERRLA and EOMI.] ENT: Nares clear, no rhinorrhea or epistaxis. Mucous membranes moist. NECK: Supple. CHEST: [Clear to auscultation. No respiratory distress.] HEART: [Regular rate and rhythm]. No murmur heard. [Normal peripheral pulses.] ABDOMEN: [Soft, nondistended], [nontender], [No rigidity or guarding] EXTREMITIES: Normal range of motion. [No edema.] SKIN: Warm, dry, no rash. NEURO: [No focal deficits]. Alert and oriented [x3.] PSYCH: [Normal mood and affect.] Course Vital Signs Vital signs: Vital Signs Temperature 36.4 C 06/13/25 20:15 Pulse Rate 94 06/13/25 20:15 Respiratory Rate 17 06/13/25 20:15 Blood Pressure 170/74 H 06/13/25 20:15 Pulse Oximetry 97 06/13/25 20:15 Oxygen Delivery Room Air 10/31/25 20:15 Temperature 36.4 C 06/13/25 20:15 Pulse Rate 81 06/14/25 04:30 Respiratory Rate 13 06/14/25 04:30 Blood Pressure 151/78 H 06/14/25 04:30 Pulse Oximetry 97 06/14/25 04:30 Oxygen Delivery Room Air 06/13/25 20:15 Medical Decision Making MDM Narrative Medical decision making narrative: 69-year-old female with history of Crohn's disease and emphysema/COPD from smoking. Patient presents to the emergency department with muscle aches, chest and epigastric discomfort as well as nausea and vomiting for 3 days. She started rifampin and budesonide this week for latent TB diagnosed by her infectious disease doctor with skin testing and a chest x-ray that showed a nodule. She had outpatient CT scan earlier this year that did not show anything and she has no other risk factors besides being on some immunosuppressive medications for her Crohn's disease. No coughing, chest pain, back pain. No diarrhea, fever chills. She is endorsing muscle spasms and pain in her neck as well as her legs. No falls or injuries. Was otherwise in her normal state of health. Only medication changes were initiation is a high-dose rifampin for 4 months and budesonide for anti-inflammatory control that she satrted this week prior to symptom onset. Patient otherwise is very well-appearing and not any acute distress. She is saturating well on room air, afebrile, no tachypnea or hypoxemia. No tachycardia or significant blood pressure elevations. Clear breath sounds throughout without any wheezing, rhonchi or asymmetric breath sounds. No retractions or labored breathing. No lymphadenopathy in the head or neck. No rigidity your muscle stiffness in the head or neck. Strong symmetric pulses. Soft nontender nondistended abdomen. Likely medication side effects given her symptoms started immediately after initiation of these drugs. Low suspicion electrolyte imbalances, dehydration or new active infection. Repeat imaging obtained including chest x-ray and a CT scan with contrast. IGRA testing sent off. Basic laboratory studies EKG obtained. COVID flu RSV panel ordered. She is given Tylenol and Zofran for symptoms. Chest x-ray shows no acute process in the CT the scan shows no acute process. She has a stable right 2 mm upper lobe nodule which is seen and been monitored on multiple scans and x-rays CTs without any interval change. I relayed this information to the patient. Patient has no leukocytosis or anemia. Normal platelet count. Mildly elevated LFTs likely from rifampin causing medication side effects. Creatinine not significant elevated. Electrolytes are normal. Glucose is normal. Troponin is negative. Patient felt much better after medications here and was given Robaxin for her neck which completely resolved her muscle spasms. Discussed with her that she will need to talk to her infectious disease doctor about changing her dosing or change to a different TB medication but no signs of active TB and the interferon gamma release assay will be a send out to see if it is truly positive. Patient understood the instructions and safe for discharge will be sent home with Robaxin. Medical Records Medical records reviewed: Yes I reviewed the external patient's medical records. Vital Signs Vital Signs: Vital Signs Temperature 36.4 C 06/13/25 20:15 Pulse Rate 94 06/13/25 20:15 Respiratory Rate 17 06/13/25 20:15 Blood Pressure 170/74 H 06/13/25 20:15 Pulse Oximetry 97 06/13/25 20:15 Oxygen Delivery Room Air 06/13/25 20:15 Temperature 36.4 C 06/13/25 20:15 Pulse Rate 81 06/14/25 04:30 Respiratory Rate 13 06/14/25 04:30 Blood Pressure 151/78 H 06/14/25 04:30 Pulse Oximetry 97 06/14/25 04:30 Oxygen Delivery Room Air 06/13/25 20:15 Lab Data Lab results reviewed: Yes I reviewed the patient's lab results. 06/13/25 22:36 06/13/25 22:37 Labs: Lab Results 06/13/25 06/13/25 06/14/25 Range/Units 22:36 22:37 01:13 WBC 9.6 (4.5-10.0) K/mm3 RBC 4.37 (4.2-5.4) M/mm3 Hgb 13.2 (12.0-15.0) g/dL Hct 40.1 (37.0-47.0) % MCV 91.8 (80-100) fl MCH 30.2 (26-34) pg MCHC 32.9 (32-36) g/dl RDW 14.2 (11.5-14.5) % Plt Count 282 (150-375) k/mm3 MPV 10.0 (7.4-10.4) fl Immature Gran % (Auto) 0.2 (0-0.5) % Neut % (Auto) 65.8 (45.5-73.1) % Lymph % (Auto) 26.4 (18.3-44.2) % Bremer % (Auto) 6.3 (2.6-8.5) % Eos % (Auto) 0.5 (0-4.4) % Baso % (Auto) 0.8 (0.2-1.2) % Lymph # (Auto) 2.53 (0.9-3.2) K/mm3 Bremer # (Auto) 0.6 (0.1-0.6) K/mm3 Eos # (Auto) 0.1 (0-0.3) K/mm3 Baso # (Auto) 0.1 (0.0-0.1) K/mm3 Abs Immat Gran (auto) 0.02 (0.00-0.031) K/mm3 Absolute Neuts (auto) 6.3 (1.3-6.7) K/mm3 Absolute Nucleated RBC 0.000 (0.0-0.012) K/mm3 Nucleated RBC % 0.0 (0.0-0.2) % PT 14.0 (11.1-14.7) Seconds INR 1.1 APTT 28.4 (22.3-36.8) Seconds Sodium 139 (137-145) mmol/L Potassium 3.4 (3.4-5.0) mmol/L Chloride 103 (98-107) mmol/L Carbon Dioxide 29 (22-30) mmol/L Anion Gap 7 (4-12) mmol/L BUN 19 H (7-17) mg/dL Creatinine 0.69 L (0.7-1.0) mg/dL Estim Creat Clear Calc 59 ml/min Estimated GFR > 60 (59 - ) Glucose 117 H (65-110) mg/dL Calcium 9.6 (8.4-10.2) mg/dL Total Bilirubin 0.6 (0.2-1.3) mg/dL AST 70 H (14-36) U/L ALT 75 H (6-35) U/L Alkaline Phosphatase 102 (38-126) U/L Total Creatine Kinase 56 (30-135) U/L Troponin I < 0.012 (0.000-0.034) ng/mL Total Protein 7.9 (6.3-8.2) g/dL Albumin 4.6 (3.5-5.1) g/dL Influenza A (RT-PCR) Negative (Negative) Influenza B (RT-PCR) Negative (Negative) RSV (RT-PCR) Negative (Negative) SARS-CoV-2 RNA (RT-PCR) Negative (Negative) TB Test (QFT) Gold Plus Pending TB (QFT) Incubation Pending Imaging Data Attestation: I personally reviewed and interpreted this imaging study as follows: My impression: No acute process, stable right upper lobe nodule RD being surveilled by patient Discharge Plan Discharge Clinical Impression: Drug side effects Patient Disposition: Home Condition: Stable Instructions: Antibiotic Form Additional Instructions: Your CT scan shows no active TB and a stable right 2 mm nodule which has been seen and surveilled on multiple CTs previously. Your laboratory studies do show evidence that the rifampin is causing some injury to your liver with ALT and AST elevated at 70 and 75 respectively. This is most likely causing your symptoms. Talk to your infectious disease doctor about switching to a different dose or a different medication for tuberculosis. We will send you home with Robaxin as it seemed to help your symptoms here for muscle spasm and muscle cramping. Return with any emergent concerns. We did send in an IGRA assay which can confirm latent TB but is a send out so you will have to follow up for results. Patient Language: Swiss Prescriptions: New methocarbamol 750 mg tablet 1,500 mg PO TID PRN (Reason: pain) Qty: 30 0RF ondansetron 4 mg tablet,disintegrating 4 mg PO Q8H PRN (Reason: nausea and vomiting) Qty: 20 0RF No Action albuterol sulfate [Ventolin HFA] 90 mcg/actuation HFA aerosol inhaler 2 puff inhalation QID PRN (Reason: shortness of breath or wheezing) Qty: 8.5 0RF Skyrizi 150 mg/mL pen injector 150 mg subcut ONCE multivitamin Tablet 1 tablet PO DAILY ascorbic acid (vitamin C) 1,000 mg tablet 1 g PO DAILY cholecalciferol (vitamin D3) 25 mcg (1,000 unit) capsule 50 mcg PO DAILY Qty: 30 0RF omega-3 fatty acids [Fish Oil Concentrate] 1,000 mg capsule 1,000 mg PO DAILY calcium carbonate [Calcium 600] 600 mg calcium (1,500 mg) tablet 600 mg PO DAILY Patient Comments: Patient reports taking 1800mg daily rosuvastatin 40 mg tablet See Rx Instructions .ROUTE .COMPLEX Qty: 90 0RF Dose Instruction: TAKE 1 TABLET BY MOUTH DAILY Rx Instructions: TAKE 1 TABLET BY MOUTH DAILY paroxetine HCl 20 mg tablet See Rx Instructions .ROUTE .COMPLEX Qty: 90 1RF Dose Instruction: TAKE 1 TABLET BY MOUTH DAILY Rx Instructions: TAKE 1 TABLET BY MOUTH DAILY Follow-up/Referrals: Natalie No APRN [Primary Care Provider, Internal Medicine] Time of Disposition: 04:30
[2025-06-13 22:00] VITALS: BP 149/75; PULSE 80; RESP 16; O2SAT 98
[2025-06-13 22:20] VITALS: O2SAT 99
[2025-06-13 22:45] LABS: Hematocrit 40.1 % (37.0-47.0); Hemoglobin 13.2 g/dL (12.0-15.0); Immature Granulocyte Percent A 0.2 % (0-0.5); Lymphocytes Absolute Auto 2.53 K/mm3 (0.9-3.2); Mean Corpuscular HGB Conc 32.9 g/dl (32-36); Mean Corpuscular Hemoglobin 30.2 pg (26-34); Mean Corpuscular Volume 91.8 fl (80-100); Nucleated Red Blood Cells Absolute Auto 0.000 K/mm3 (0.0-0.012); Nucleated Red Blood Cells Perc 0.0 % (0.0-0.2); Platelet Count Result 282 k/mm3 (150-375); Red Blood Count 4.37 M/mm3 (4.2-5.4); White Blood Count 9.6 K/mm3 (4.5-10.0)
[2025-06-13 22:57] LABS: INR 1.1; Prothrombin Time 14.0 Seconds (11.1-14.7)
[2025-06-13 22:58] LABS: Partial Thromboplastin Time 28.4 Seconds (22.3-36.8)
[2025-06-13 22:59] LABS: Alanine Aminotransferase 75 U/L (6-35); Albumin Level 4.6 g/dL (3.5-5.1); Alkaline Phosphatase 102 U/L (38-126); Anion Gap 7 mmol/L (4-12); Aspartate Amino Transferase 70 U/L (14-36); Bilirubin,Total 0.6 mg/dL (0.2-1.3); Blood Urea Nitrogen 19 mg/dL (7-17); Calcium 9.6 mg/dL (8.4-10.2); Carbon Dioxide 29 mmol/L (22-30); Chloride 103 mmol/L (98-107); Creatine Kinase 56 U/L (30-135); Estimated CRCL calculation 59 ml/min; Estimated Glomerular Filt Rate > 60; Glucose 117 mg/dL (65-110); Potassium 3.4 mmol/L (3.4-5.0); Sodium 139 mmol/L (137-145); Total Protein 7.9 g/dL (6.3-8.2)
[2025-06-13 23:00] VITALS: BP 148/75; BP 159/77; PULSE 78; PULSE 79; RESP 10; RESP 14; O2SAT 93; O2SAT 97
[2025-06-13 23:11] LABS: Troponin I < 0.012 ng/mL (0.000-0.034)
[2025-06-13] MEDS: LACTATED RINGERS 1,000 ML 999 ML IV CONT (23:48)
[2025-06-13] MEDS: METOCLOPRAMIDE HCL INJ 10 MG/2 ML VIAL 5 MG IV PUSH (23:49)
[2025-06-13] MEDS: FAMOTIDINE 20 MG/2 ML VIAL IV PUSH (23:50)
[2025-06-14 01:40] VITALS: BP 154/79; PULSE 77; RESP 17; O2SAT 95
[2025-06-14 01:53] LABS: Influenza A QL RT-PCR Negative (Negative); Influenza B QL RT-PCR Negative (Negative); RSV RNA, RT-PCR Negative (Negative); SARS-CoV-2 RNA PCR Negative (Negative)
[2025-06-14 04:30] VITALS: BP 151/78; PULSE 81; RESP 13; O2SAT 97
[2025-06-14 04:52] VITALS: BP 151/78; PULSE 81; RESP 13; O2SAT 97
== END 2025-06-14 04:57 | disposition home or self-care (01) ==
PROVIDERS: Emergency Provider Student in an Organized Health Care Education/Training Program; PCP Nurse Practitioner Family
DX: R11.2 Nausea with vomiting, unspecified (principal); R10.13 Epigastric pain; R07.89 Other chest pain; T36.6X5A Adverse effect of rifampicins, initial encounter; Z20.822 Contact with and (suspected) exposure to COVID-19; K50.90 Crohn's disease, unspecified, without complications; E55.9 Vitamin D deficiency, unspecified; R73.03 Prediabetes; J43.9 Emphysema, unspecified; Z90.79 Acquired absence of other genital organ(s); F17.210 Nicotine dependence, cigarettes, uncomplicated; R91.1 Solitary pulmonary nodule; I45.10 Unspecified right bundle-branch block; R94.31 Abnormal electrocardiogram [ECG] [EKG]
CPT/HCPCS: 36415; 71045; 71260; 80053; 82550; 84484; 85025; 85610; 85730; 86480; 87637; 93005; 96361; 96374; 96375; 99284; A9270; J1200; J2765; J7120; Q9967